=== PATIENT | male | born 1995 | race Caucasian/White ===

== ENCOUNTER 2017-08-26 01:34 | Emergency (ER) | payer BC ==
[~2017-08-26] VITALS: Ht 188 cm; Wt 97.5 kg
[~2017-08-26 01:34] MED LIST: INDERAL LA80 MG ORAL
[2017-08-26] MEDS ORDERED: IBUPROFEN600 MG ORAL (01:53)
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
[2017-08-26] MEDS ORDERED: Ketorolac 60mg Inj IM ONE (02:00)
[2017-08-26 02:06] VITALS: BP 133/84
[2017-08-26 02:07] VITALS: BP 133/84
== END 2017-08-26 02:05 | disposition home or self-care (01) ==
LOC: EDBD 01:34 → EMR 01:44
DX: S39.012A Strain of muscle, fascia and tendon of lower back, initial encounter (principal); X50.9XXA Other and unspecified overexertion or strenuous movements or postures, initial encounter; Y92.89 Other specified places as the place of occurrence of the external cause
CPT/HCPCS: 96372; 99283